=== PATIENT | male | born 1945 | race Caucasian/White ===

== ENCOUNTER 2016-10-03 13:26 | Emergency (ER) | payer MEDICARE, MEDICAID ==
[~2016-10-03] VITALS: Ht 172.7 cm; Wt 83.0 kg
[2016-10-03 13:36] VITALS: BP 122/68; PULSE 81; RESP 18; TEMP 98.9; O2SAT 96
[2016-10-03] MEDS ORDERED: SODIUM CHLOR 0.9% 1000 ML INJ 1,000 ML IV ONE (13:45)
--- NOTE | 2016-10-03 13:52 | PD ---
HPI Chief Complaint: Syncope/Near-Syncope Time Seen by Provider: 13:40 Travel History International Travel<30 days: No Contact w/Intl Traveler<30days: No Traveled to known affect area: No History of Present Illness HPI Is a 71-year-old man who presents to the emergency department complaining of a syncopal episode. He went by himself to the beach for a little day trip. He was out in the sun and not patito lounge. States he went to get up and was too weak to stand up. Some of them help him and he still couldn't get his legs underneath him. He then woke up on the ground with people surrounding him. He' s felt fine until now. Is very hot outside. He states he drank a little water. He has not been drinking alcohol. He does have a medical history including CAD with remote CABG, and TIA. He is on Plavix. States prior to that he's felt completely fine. Denies any symptoms now. No hypotension. No other complaints. History Past Medical History Narrative Medical CAD, remote CABG TIA Social History Alcohol Use: No Tobacco Use: No (quit a year ago, 0.5 ppd for 50 yrs) Allergies-Medications (Allergen,Severity, Reaction): Coded Allergies: Nonsteroidal Anti-Inflammatory Agts (Verified Allergy, Unknown, 10/03/16) GI upset Review of Systems Except as stated in HPI: all other systems reviewed are Neg Physical Exam Narrative GENERAL: Well-appearing 71-year-old man, no acute distress. SKIN: Skin is flushed hot and dry. NECK: Trachea midline. No JVD. CARDIOVASCULAR: Regular rate and rhythm. No murmur appreciated. RESPIRATORY: No accessory muscle use. Clear to auscultation. Breath sounds equal bilaterally. GASTROINTESTINAL: Abdomen soft, non-tender, nondistended. Hepatic and splenic margins not palpable. MUSCULOSKELETAL: No obvious deformities. No edema. NEUROLOGICAL: Awake and alert. No obvious cranial nerve deficits. Motor grossly within normal limits. Normal speech. PSYCHIATRIC: Appropriate mood and affect; insight and judgment normal. Data Data Last Documented VS Vital Signs Date Time Temp Pulse Resp B/P Pulse Ox O2 Delivery O2 Flow Rate FiO2 10/03/16 13:37 81 18 97 Room Air 10/03/16 13:36 98.9 122/68 Orders Electrocardiogram (10/03/16 ) Complete Blood Count With Diff (8/5/17 13:43) Comprehensive Metabolic Panel (10/03/16 13:43) Iv Access Insert/Monitor (10/03/16 13:43) Sodium Chlor 0.9% 1000 Ml Inj (Ns 1000 M (10/03/16 13:45) Labs Laboratory Tests Test 10/03/16 13:50 White Blood Count 7.5 TH/MM3 Red Blood Count 3.99 MIL/MM3 Hemoglobin 13.1 GM/DL Hematocrit 37.4 % Mean Corpuscular Volume 93.6 FL Mean Corpuscular Hemoglobin 32.9 PG Mean Corpuscular Hemoglobin 35.2 % Concent Red Cell Distribution Width 13.2 % Platelet Count 262 TH/MM3 Mean Platelet Volume 7.7 FL Neutrophils (%) (Auto) 79.9 % Lymphocytes (%) (Auto) 11.0 % Monocytes (%) (Auto) 8.0 % Eosinophils (%) (Auto) 0.6 % Basophils (%) (Auto) 0.5 % Neutrophils # (Auto) 6.0 TH/MM3 Lymphocytes # (Auto) 0.8 TH/MM3 Monocytes # (Auto) 0.6 TH/MM3 Eosinophils # (Auto) 0.0 TH/MM3 Basophils # (Auto) 0.0 TH/MM3 CBC Comment DIFF FINAL Differential Comment Sodium Level 140 MEQ/L Potassium Level 4.1 MEQ/L Chloride Level 106 MEQ/L Carbon Dioxide Level 24.0 MEQ/L Anion Gap 10 MEQ/L Blood Urea Nitrogen 22 MG/DL Creatinine 1.38 MG/DL Estimat Glomerular Filtration 51 ML/MIN Rate Random Glucose 105 MG/DL Calcium Level 9.2 MG/DL Total Bilirubin 0.5 MG/DL Aspartate Amino Transf 21 U/L (AST/SGOT) Alanine Aminotransferase 29 U/L (ALT/SGPT) Alkaline Phosphatase 75 U/L Total Protein 7.1 GM/DL Albumin 3.6 GM/DL [facility] Medical Decision Making Medical Screen Exam Complete: Yes Emergency Medical Condition: Yes Interpretation(s) My review of EKG: Sinus rhythm at a rate of 70 with sinus arrhythmia, normal axis, normal intervals, no acute ischemia. LABS: CBC is unremarkable. Differential Diagnosis Weakness, dehydration, flushing, other Narrative Course Medical decision making 70-year-old man, sitting [place] the beach when he got up he had syncopal episode. Is likely dehydration or heat exhaustion. He looks well. No evidence of arrhythmia or hypotension. States she otherwise has been feeling poorly fine. We'll check chemistries, IV fluid hydration. Likely outpatient follow-up. Diagnosis Primary Impression: Syncope and collapse Additional Impression: Dehydration Additional Instructions: Drink plenty of fluids stay well-hydrated. All with her primary doctor in 1 week. Return to the emergency department for any new or worsening symptoms. Med/Other Pt SpecificInfo: No Change to Meds Disposition: 01 DISCHARGE HOME Condition: Stable Omar Stinson MD Oct 03, 2016 13:51
[2016-10-03 14:13] LABS: BASOPHIL % 0.5 % (0.0-2.0); EOSINOPHIL % 0.6 % (0.0-4.0); HEMATOCRIT 37.4 % (39.0-51.0); HEMO FLAGS DIFF FINAL; LYMPHOCYTE # 0.8 TH/MM3 (1.0-4.8); MEAN CELL VOLUME 93.6 FL (80.0-100.0); MEAN CORPUSCULAR HEMOGLOBIN 32.9 PG (27.0-34.0); MEAN CORPUSCULAR HGB CONC 35.2 % (32.0-36.0); NEUT % 79.9 % (16.0-70.0); PLATELET COUNT 262 TH/MM3 (150-450); RED BLOOD COUNT 3.99 MIL/MM3 (4.50-5.90); RED CELL DISTRIBUTION WIDTH 13.2 % (11.6-17.2); WHITE BLOOD COUNT 7.5 TH/MM3 (4.0-11.0)
[2016-10-03 14:32] LABS: ALT (GPT) 29 U/L (12-78); ANION GAP 10 MEQ/L (5-15); AST (GOT) 21 U/L (15-37); BLOOD UREA NITROGEN 22 MG/DL (7-18); CHLORIDE 106 MEQ/L (98-107); GLOMERULAR FILTRATION RATE 51 ML/MIN (>89); POTASSIUM 4.1 MEQ/L (3.5-5.1); SODIUM (NA) 140 MEQ/L (136-145)
[2016-10-03 14:34] LABS: ALKALINE PHOSPHATASE 75 U/L (45-117); TOTAL BILIRUBIN ADULT 0.5 MG/DL (0.2-1.0)
[2016-10-03] MEDS ORDERED: SYMB160A INH (14:56)
[2016-10-03] MEDS ORDERED: FENO134C PO (14:56)
[2016-10-03] MEDS ORDERED: TRAZ100T6 PO (14:56)
[2016-10-03] MEDS ORDERED: OLAN5TAB PO (14:56)
[2016-10-03] MEDS ORDERED: METO25TA3 PO (14:56)
[2016-10-03] MEDS ORDERED: MULT-106 PO (14:56)
[2016-10-03] MEDS ORDERED: ATOR20TA15 PO (14:56)
[2016-10-03] MEDS ORDERED: ZANT150T2 PO (14:56)
[2016-10-03] MEDS ORDERED: TRAM50TA PO (14:56)
[2016-10-03] MEDS ORDERED: BUSP10TA PO (14:56)
[2016-10-03] MEDS ORDERED: GABA600T PO (14:56)
[2016-10-03] MEDS ORDERED: PLAV75TA29 PO (14:56)
[2016-10-03] MEDS ORDERED: TEMA30CA PO (14:56)
[2016-10-03] MEDS ORDERED: ASPI1TAB91 PO (14:56)
[2016-10-03] MEDS ORDERED: FINA5TAB2 PO (14:56)
[2016-10-03] MEDS ORDERED: ACET-822 PO (14:56)
[2016-10-03 15:00] VITALS: BP 127/78
--- NOTE | 2016-10-04 17:10 | EKG ---
Date Performed: 10/03/2016 Time Performed: 13:33:34 PTAGE: 71 years EKG: Sinus rhythm WITH SINUS ARRHYTHMIA INDETERMINATE AXIS ATYPICAL ECG INTERPRETATION BASED ON A DEFAULT AGE OF 40 YE ARS NO PREVIOUS TRACING DOCTOR: Amita Castillo Interpretating Date/Time 10/04/2016 17:08:57
== END 2016-10-03 15:08 | disposition home or self-care (01) ==
LOC: NEPE 13:26
DX: R55 Syncope and collapse (principal); E86.0 Dehydration; I25.10 Atherosclerotic heart disease of native coronary artery without angina pectoris; Z95.1 Presence of aortocoronary bypass graft; Z86.73 Personal history of transient ischemic attack (TIA), and cerebral infarction without residual deficits
CPT/HCPCS: 80053; 85025; 93005; 99284; J7030